=== PATIENT | female | born 1970 | race Caucasian/White ===

== ENCOUNTER 2025-01-08 01:09 | Emergency (ER) | payer BC, MEDICAID ==
[~2025-01-08] VITALS: Ht 152.4 cm; Wt 59.9 kg
[2025-01-08 01:29] VITALS: TEMP 97.8
[2025-01-08] MEDS ORDERED: TDAP [DIPH/PERTUSSIS/TET] 0.5 ML VIAL IM ONE (02:17)
[2025-01-08] MEDS: TDAP [DIPH/PERTUSSIS/TET] 0.5 ML VIAL IM ONE (02:23)
[2025-01-08] MEDS: LIDOCAINE HCL/PF 1% 30 ML VIAL TP ONE (03:04)
[2025-01-08 03:18] VITALS: BP 119/67; O2SAT 99
[2025-01-08] MEDS ORDERED: AMOX-430 PO (03:20)
[2025-01-08] MEDS ORDERED: AMOX/CLAVULANATE 875 MG TABLET ONE (03:24)
[2025-01-08] MEDS: AMOX/CLAVULANATE 875 MG TABLET PO ONE (03:33)
== END 2025-01-08 03:34 | disposition home or self-care (01) ==
LOC: ER 01:19
DX: S61.412A Laceration without foreign body of left hand, initial encounter (principal); J45.909 Unspecified asthma, uncomplicated; W54.0XXA Bitten by dog, initial encounter; Y93.K1 Activity, walking an animal; Y92.89 Other specified places as the place of occurrence of the external cause; Y99.8 Other external cause status
CPT/HCPCS: 12002; 90471; 90715; 99283; J3490

== ENCOUNTER 2025-01-23 17:23 | Emergency (ER) | payer MEDICAID ==
[~2025-01-23] VITALS: Ht 160 cm; Wt 59.0 kg
[~2025-01-23 17:23] MED LIST: AMOX-430 PO
[2025-01-23 17:36] VITALS: BP 119/66; TEMP 98
[2025-01-23] MEDS ORDERED: IBUPROFEN SUSP 100 MG/5 ML UDC ONE (18:06)
[2025-01-23] MEDS ORDERED: ACETAMINOPHEN 160 MG/5 ML ONE (18:06)
[2025-01-23] MEDS: IBUPROFEN 400 MG TABLET PO ONE (18:15)
[2025-01-23] MEDS: ACETAMINOPHEN ES 500 MG TABLET PO ONE (18:15)
[2025-01-23] MEDS: LIDOCAINE 5% (PATCH) 1 EA PATCH TP SCH (18:15)
[2025-01-23] MEDS ORDERED: ACET-2030 PO (19:15)
[2025-01-23] MEDS ORDERED: CYCL5TAB PO (19:15)
[2025-01-23 19:44] VITALS: O2SAT 97
== END 2025-01-23 19:46 | disposition home or self-care (01) ==
LOC: ER 17:27
DX: M54.50 Low back pain, unspecified (principal); R51.9 Headache, unspecified; M54.2 Cervicalgia; J45.909 Unspecified asthma, uncomplicated; V49.09XA Driver injured in collision with other motor vehicles in nontraffic accident, initial encounter; Y93.89 Activity, other specified; Y92.410 Unspecified street and highway as the place of occurrence of the external cause; Y99.8 Other external cause status
CPT/HCPCS: 71045-TC; 72040-TC; 72100-TC